=== PATIENT | male | born 1990 | race Caucasian/White ===

== ENCOUNTER 2020-05-12 19:58 | Emergency (ER) | payer MEDICAID ==
[~2020-05-12] VITALS: Ht 177.8 cm; Wt 70.3 kg
--- NOTE | 2020-05-12 20:01 | NUR ---
PT BIBSELF C/O FEVER AND HEADACHE X1 DAY PT AAOX4. VITAL SIGNS STABLE. RESPIRATIONS EVEN AND UNLABORED. NO ACUTE DISTRESS NOTED AT THIS TIME
[2020-05-12] MEDS ORDERED: ONDANSETRON 4 MG TAB.RAPDIS ONE (20:34)
[2020-05-12] MEDS ORDERED: ACETAMINOPHEN ES 500 MG TABLET ONE (20:34)
[2020-05-12] MEDS ORDERED: ACETAMINOPHEN 325 MG TABLET PO ONE (21:00)
[2020-05-12] MEDS ORDERED: ONDANSETRON 4 MG TAB.RAPDIS PO ONE (21:00)
--- NOTE | 2020-05-12 21:20 | NUR ---
COVID AND FLU SWABS COLLECTED AND SENT TO LAB
--- NOTE | 2020-05-12 21:25 | NUR ---
Patient discharged to home in stable condition. Written and verbal after care instructions given. Patient verbalizes understanding of instruction.Pt ambulatory with a steady gait
[2020-05-12 21:34] VITALS: BP 118/79
--- NOTE | 2020-05-14 15:09 | NUR ---
CALLED TO INFORM PATIENT HE IS COVID POSITIVE. INSTRUCTED TO CONTINUE ISOLATION WITH SUPPORTIVE CARE. ALL QUESTIONS ANSWERED
== END 2020-05-12 21:34 | disposition home or self-care (01) ==
LOC: ER 20:01
DX: U07.1 COVID-19 (principal); R51.9 Headache, unspecified; R11.2 Nausea with vomiting, unspecified
CPT/HCPCS: 71045; 87804; 99284; C9803; Q0162; U0003